=== PATIENT | male | born 1950 | race Caucasian/White ===

== ENCOUNTER → 2020-11-19 | Outpatient (CLI) | payer MEDICARE, OTHER | LOC: LABNPT 06:34 | PROVIDERS: ATTEND Internal Medicine | DX: J06.9 Acute upper respiratory infection, unspecified (principal); Z20.822 Contact with and (suspected) exposure to COVID-19 | CPT/HCPCS: 87635 ==

== ENCOUNTER → 2021-02-25 | Outpatient (CLI) | payer MEDICARE, OTHER | LOC: CARD 10:53 | PROVIDERS: ATTEND Internal Medicine Cardiovascular Disease | DX: I11.9 Hypertensive heart disease without heart failure (principal) | CPT/HCPCS: 93306 ==

== ENCOUNTER → 2021-04-20 | Outpatient (CLI) | payer MEDICARE, OTHER ==
[~2021-04-20] VITALS: Ht 180 cm; Wt 131.0 kg
[~2021-04-20] MED LIST: CATHETER FLUSH 10 ML SYR IV PRN
[2021-04-20 09:18] VITALS: BP 144/94
--- NOTE | 2021-04-20 12:47 | Cardiology Stress Test Report ---
Stress Test Report Date of Procedure/Referring: Date of Procedure: Apr 20, 2021 PCP Paulo Wagner MD Admitting Physician Isma Sullivan MD Indications: HTN Baseline Heart Rate: 72 Baseline Blood Pressure: Blood Pressure Systolic: 144 Blood Pressure Diastolic: 94 Vital Signs Date Time Temp Pulse Resp B/P (MAP) Pulse Ox O2 Delivery O2 Flow Rate FiO2 04/20/21 09:18 72 144/94 (111) Baseline Vital Signs Vital Signs Date Time Temp Pulse Resp B/P (MAP) Pulse Ox O2 Delivery O2 Flow Rate FiO2 04/20/21 09:18 72 144/94 (111) Baseline EKG: Baseline EKG: NSR Summary: After explaining the procedure and details to the patient, he signed the consent and was brought to the stress nuclear laboratory. Patient exercised on standard Shemar protocol, EKG, heart rate and blood pressure were monitored continuously, resting and stress doses of radio tracer were injected, imaging was acquired and reviewed in the short axis, horizontal long axis and vertical long axis views Patient was able to exercise for a total of 4 minutes on Shemar protocol, METs 5.8 Maximum heart rate 734 Maximum blood pressure 206/91 Stress EKG, Minimal nondiagnostic changes Recovery EKG, Return to baseline TID: 1.01 SSS: 7 SDS: 5 EF: 51 Conclusion: 1. Fair exercise tolerance for a total of 4 minutes on standard Shemar protocol, 5.8 METS achieving 89% of maximal expected heart rate 2. Severe hypertensive response to exercise with peak blood pressure 206/91 return to baseline during recovery 3. Nondiagnostic EKG changes with exercise return to baseline during recovery 4. Decreased uptake involving the mid to apical anterior wall and true apex with mild reversibility 5. Normal left ventricular size with hypokinesia at the apex, ejection fraction 51% PAULO WAGNER MD Apr 20, 2021 12:47
== END ==
LOC: CARD 07:45
PROVIDERS: ATTEND Internal Medicine Cardiovascular Disease
DX: I10 Essential (primary) hypertension (principal)
CPT/HCPCS: 78452; 93017; A9502

== ENCOUNTER 2021-05-04 09:00 | Day surgery (SDC) | payer MEDICARE, OTHER ==
[2021-05-04] VITALS (9 sets, daily range): BP systolic 96–142; BP diastolic 69–91
[~2021-05-04] VITALS: Ht 180.3 cm; Wt 134.7 kg
[2021-05-04 07:31] LABS: HEMATOCRIT 44 % (40-54); HEMOGLOBIN 15.2 g/dL (13.3-17.7); MEAN CORPUSCULAR HEMOGLOBIN 33 pg (25-34); MEAN CORPUSCULAR HGB CONC 34 g/dL (32-36); MEAN CORPUSCULAR VOLUME 95 fL (80-99); PLATELET COUNT 194 10^3/uL (130-400); WHITE BLOOD COUNT 5.8 10^3/uL (4.3-11.0)
[2021-05-04 07:37] LABS: CLARITY,URINE CLEAR; COLOR,URINE YELLOW; GLUCOSE, URINE (UA) NEGATIVE (NEGATIVE); KETONES,URINE NEGATIVE (NEGATIVE); LEUKOCYTE ESTERASE ,URINE NEGATIVE (NEGATIVE); NITRITE,URINE NEGATIVE (NEGATIVE); PROTEIN,URINE TRACE (NEGATIVE)
[2021-05-04 07:44] LABS: INR 0.9 (0.8-1.4); PROTHROMBIN TIME PATIENT 12.5 SEC (12.2-14.7)
[2021-05-04 07:44] LABS: BACTERIA,URINE NEGATIVE /HPF; BILIRUBIN,URINE NEGATIVE (NEGATIVE)
[2021-05-04 07:54] LABS: ALBUMIN 4.2 GM/DL (3.2-4.5); BILIRUBIN,TOTAL 0.9 MG/DL (0.1-1.0); CALCIUM 9.4 MG/DL (8.5-10.1); CREATININE SERUM 0.95 MG/DL (0.60-1.30); POTASSIUM 4.2 MMOL/L (3.6-5.0); TOTAL PROTEIN 7.3 GM/DL (6.4-8.2)
--- NOTE | 2021-05-04 08:06 | Diagnostic Imaging Report ---
INDICATION: Abnormal stress test. No previous for comparison. FINDINGS: Heart is not enlarged. The lungs are relatively well-aerated. There is slight interstitial prominence especially in the right lung. The pulmonary vasculature does not appears particularly increased. No pleural effusion. IMPRESSION: Portable chest showing mild interstitial prominence in right lung. No other abnormal findings are seen. This could represent some pulmonary edema or inflammatory change. Dictated by: Dictated on workstation # [id number]
--- NOTE | 2021-05-04 08:06 | Conscious Sedation/ASA ---
Conscious Sedation Pre-Proced Time 08:06 ASA Score 3 For ASA 3 and 4: Consider anesthesia and medical clearance. Also, for patients with a history of failed moderate sedation consider anesthesia. Airway Lungs Heart ASA score ASA 1: a normal healthy patient ASA 2: a patient with a mild systemic disease (mid diabetes, controlled hypertension, obesity x ASA 3: a patient with a severe systemic disease that limits activity (angina, COPD, prior Myocardial infarction) ASA 4: a patient with an incapacitating disease that is a constant threat to life (CHF, renal failure) ASA 5: a moribund patient not expected to survive 24 hrs. (ruptured aneurysm) ASA 6: a declared brain- patient whose organs are being harvested. For emergent operations, add the letter E after the classification Mallampati Classification Grade 3 Sedation Plan Analgesia, Amnesia, Plan communicated to team members, Discussed options with patient/fam, Discussed risks with patient/fam The patient is an appropriate candidate to undergo the planned procedure, sedation, and anesthesia. The patient immediately re-assessed prior to indication. PAULO LEON MD May 04, 2021 08:06
--- NOTE | 2021-05-04 08:47 | Discharge Inst-Post CATH ---
Discharge Inst-CATH/EP Problems Reviewed?: Yes Post Cardiac Cath/EP D/C Inst Follow Up/Plan Appointment with Dr. Wagner's office in 2 to 4 weeks <b>CARDIAC CATH/EP PROCEDURE DISCHARGE INSTRUCTIONS</b> ACTIVITY * Go Home directly and rest. * Limit activity of the leg (or wrist if it was used) for 7 days including aer obics, swimming, jogging, bicycling, etc. * Restrict stair-climbing for 7 days if possible, if not, climb up with your non-cath leg, then bring together on the same step. * Avoid lifting, pushing, pulling or excessive movement of the affected extremi ty for 7 days. * Customary sexual activity may be resumed after 2 days-use caution not to use a position that strains or causes pain to the affected extremity. * No driving for 24 hours. * NO SMOKING. * Avoid straining for bowel movements for 7 days. * Gentle walking on level ground is allowed. * Returning to work will depend on the type of procedure and the results. Your doctor will discuss this with you. CALL YOUR DOCTOR FOR ANY OF THE FOLLOWING: *If bleeding from the puncture site occurs- Apply gentle pressure to site with clean cloth and call your doctor or EMS. * If a knot or lump forms under the skin, increases in size, or causes pain. * If bruising appears to be worsening or moving further down your leg instead of disappearing. * Temperature above 101 F. CARE OF YOUR GROIN INCISION; * Bruising or purple discoloration of the skin near the puncture site is common. * You may shower only, no bathtub bathing for 5 days. Be careful to avoid slipping as your leg may feel stiff. * If a closure device was used on your femoral artery, please see the attached guide regarding care of the device and your leg. * Leave dressing on FOR 24 hours. CARE OF YOUR WRIST INCISION; * Bruising or purple discoloration of the skin near the puncture site is common. * You may shower. * DO NOT submerge wrist. * Leave dressing on FOR 24 hours. PAULO WAGNER MD May 04, 2021 08:47
--- NOTE | 2021-05-04 08:56 | Cardiac Cath Report ---
Cardiac Cath Report Physician (s)/Pet Technologist (s) Physician PAULO LEON MD Pre-Procedure Diagnosis Pre-Procedure Diagnosis: Coronary artery disease Post-Procedure Note Procedure Start Date: May 04, 2021 Name of Procedure: Left heart catheterization Aortic arch angiogram Findings/Procedure Note PROCEDURE NOTE: 70 years old gentleman with extensive history of coronary artery disease multiple interventions in the past, had an abnormal stress test, scheduled for cardiac catheterization possible PTCA. After explaining the procedure to the patient, all pros and cons were explained, all questions were answered. The patient signed the consent and then he was placed on the cardiac catheterization laboratory. Groin was prepped SL fashion local anesthesia was used. Sheath placed in the right radial artery, Rugby catheter was used, I had difficulty moving the catheter across the aortic arch due to the anatomy. Prolapsed to the left ventricular cavity, pressure was measured, pullback LV to aorta was done. Engaged the right and left coronary system, angiogram was done then I proceeded with pulling back the catheter to the aortic arch and I evaluated the aortic arch with angiogram. At the end of the procedure the sheath was removed. Vascular band was used FINDINGS: Hemodynamics LV 103/19, end-diastolic pressure of 19 Aorta 107/75 mean of 67 ANATOMY: Left Main is free of obstructive disease Left Anterior Descending has multiple patent stents, slow flow due to small vessel disease distally nonobstructive disease Left Circumflex is moderate in size with mild to moderate disease. Ramus intermedius has moderate ostial stenosis, there is a small branch of the ramus intermedius that has severe stenosis, very small artery, not amendable to intervention Right Coronary Artery is dominant artery moderate in size with 50% stenosis at the midportion otherwise mild disease nonobstructive disease LV Gram was not done, pressure was measured Aorta evaluation done with aortic arch angiogram showing calcification in the aortic arch with hypertensive changes, no dissection or aneurysm, tortuous brachiocephalic origin with mild disease, mild disease in the left carotid and left subclavian arteries. CONCLUSION: 1. Patent stents in the proximal and mid LAD with slow flow in the LAD due to small vessel disease distally 2. Moderate stenosis at the ostial ramus intermedius branch, severe stenosis at the ostial branch of the ramus intermedius very small artery not amendable to intervention 3. 50% stenosis in the mid right coronary artery with mild to moderate disease distally 4. Mildly elevated left ventricular end-diastolic pressure 5. Hypertensive changes in the aortic arch with no dissection or aneurysm, tortuous origin of the brachiocephalic artery. DISCUSSION AND RECOMMENDATION: Maximizing medical therapy, no intervention is warranted Anesthesia Type: Conscious Sedation Estimated blood loss (mL): 10 ml Contrast Amount: 59 ml Total Radiation Dose: 737 mGy Post-Procedure Diagnosis Post-operative diagnosis: Coronary artery disease Hypertension Hyperlipidemia Chest pain PAULO LEON MD May 04, 2021 08:56
[~2021-05-04 09:00] MED LIST changes: +ASPI-1238 PO; +ATOR40TA70 PO; -CATHETER FLUSH 10 ML SYR IV PRN; +CLOP75TA69 PO; +CYCL10TA25 PO; +HEParin (CATH LAB) 2,000 ML IV ONE; +HEParin 1000 UNIT/ML (10ML VIAL) FOR BOLUS ONE; +ISOS60TA63 PO; +LIDOCAINE 1% INJ 20 ML VIAL ONE; +LISI5TAB20 PO; +METO-352 PO; +MIDAZOLAM 5 MG/5 ML (VERSED) VIAL ONE; +NITRO DRIP 25000 MCG/D5W 250 ML IV ONE; +NS IV 1000 ML 1,000 ML IV SCH; +NS IV 1000 ML 1,000 ML ONE; +PANT40TA2 PO; +SERT-414 PO; +SPIR25TA PO; +TRAZ-227 PO; +VERAPAMIL 5 MG/2 ML (CALAN) VIAL IV ONE; +fentaNYL INJ 100 MCG/2 ML AMP ONE
== END 2021-05-04 11:05 | disposition home or self-care (01) ==
LOC: CATH 09:00
PROVIDERS: ATTEND Internal Medicine Cardiovascular Disease
DX: I25.118 Atherosclerotic heart disease of native coronary artery with other forms of angina pectoris (principal); I10 Essential (primary) hypertension; E78.2 Mixed hyperlipidemia; I65.23 Occlusion and stenosis of bilateral carotid arteries; R09.89 Other specified symptoms and signs involving the circulatory and respiratory systems; I25.2 Old myocardial infarction; Z79.82 Long term (current) use of aspirin; Z79.899 Other long term (current) drug therapy; Z87.891 Personal history of nicotine dependence; Z95.5 Presence of coronary angioplasty implant and graft
CPT/HCPCS: 36221; 71045; 80053; 80061; 81000; 85027; 85610; 85730; 87081; 93458; C1894; 36415; 36430

== ENCOUNTER → 2021-09-27 | Outpatient (CLI) | payer MEDICARE, OTHER ==
[~2021-09-27] MED LIST changes: -HEParin (CATH LAB) 2,000 ML IV ONE; -HEParin 1000 UNIT/ML (10ML VIAL) FOR BOLUS ONE; -LIDOCAINE 1% INJ 20 ML VIAL ONE; -MIDAZOLAM 5 MG/5 ML (VERSED) VIAL ONE; -NITRO DRIP 25000 MCG/D5W 250 ML IV ONE; -NS IV 1000 ML 1,000 ML IV SCH; -NS IV 1000 ML 1,000 ML ONE; +RT-ALBUTEROL SULF 2.5 MG/3 ML PRE-MIX VIAL INH ONE; -VERAPAMIL 5 MG/2 ML (CALAN) VIAL IV ONE; -fentaNYL INJ 100 MCG/2 ML AMP ONE
== END ==
LOC: RT 10:45
PROVIDERS: ATTEND Physician Assistant
DX: R05.3 Chronic cough (principal); R06.02 Shortness of breath; Z87.891 Personal history of nicotine dependence
CPT/HCPCS: 94060; 94726; 94729

== ENCOUNTER → 2021-10-26 | Outpatient (CLI) | payer MEDICARE, OTHER ==
[~2021-10-26] MED LIST changes: -RT-ALBUTEROL SULF 2.5 MG/3 ML PRE-MIX VIAL INH ONE
--- NOTE | 2021-10-26 12:00 | Diagnostic Imaging Report ---
EXAMINATION: Chest 2 view HISTORY: RESPIRATORY FAILURE COMPARISON: 05/04/2021 FINDINGS: Heart size and pulmonary vasculature are normal. There are patchy interstitial and airspace opacities seen throughout both lungs. Likely background chronic lung disease present. No pleural effusion or pneumothorax. Degenerative changes of the thoracic spine. Osseous structures are otherwise intact. IMPRESSION: 1. Patchy interstitial airspace opacities throughout both lungs. Findings can be seen with pneumonia or pulmonary edema. Likely some degree of background chronic lung disease. Dictated by: Dictated on workstation # [id number]
== END ==
LOC: RAD 11:11
PROVIDERS: ATTEND Physician Assistant
DX: J44.9 Chronic obstructive pulmonary disease, unspecified (principal)
CPT/HCPCS: 71046

== ENCOUNTER → 2021-12-14 | Outpatient (CLI) | payer MEDICARE, OTHER | LOC: CARD 14:25 | PROVIDERS: ATTEND Internal Medicine Cardiovascular Disease | DX: I11.9 Hypertensive heart disease without heart failure (principal) | CPT/HCPCS: 93306 ==

== ENCOUNTER → 2021-12-20 | Outpatient (CLI) | payer MEDICARE, OTHER ==
[~2021-12-20] MED LIST changes: +RT-ALBUTEROL SULF 2.5 MG/3 ML PRE-MIX VIAL INH ONE
== END ==
LOC: RT 15:05
PROVIDERS: ATTEND Internal Medicine Critical Care Medicine
DX: J84.114 Acute interstitial pneumonitis (principal); J96.11 Chronic respiratory failure with hypoxia; J84.10 Pulmonary fibrosis, unspecified; K21.9 Gastro-esophageal reflux disease without esophagitis
CPT/HCPCS: 94060; 94621; 94726; 94729

== ENCOUNTER → 2021-12-23 | Outpatient (CLI) | payer MEDICARE, OTHER ==
[~2021-12-23] MED LIST changes: -RT-ALBUTEROL SULF 2.5 MG/3 ML PRE-MIX VIAL INH ONE
[2021-12-23 08:44] LABS: ABSOLUTE RETIC # 194 10e9/uL (24-90); BASOPHILS % (AUTO) 0 % (0-10); EOSINOPHILS % (AUTO) 0 % (0-10); HEMATOCRIT 44 % (40-54); HEMOGLOBIN 15.4 g/dL (13.3-17.7); LYMPHOCYTES # (AUTO) 1.8 10^3/uL (1.0-4.0); LYMPHOCYTES % (AUTO) 17 % (12-44); MEAN CORPUSCULAR HEMOGLOBIN 33 pg (25-34); MEAN CORPUSCULAR HGB CONC 35 g/dL (32-36); MEAN CORPUSCULAR VOLUME 95 fL (80-99); MEAN PLATELET VOLUME 9.7 fL (9.0-12.2); MONOCYTES # (AUTO) 0.7 10^3/uL (0.0-1.0); MONOCYTES % (AUTO) 6 % (0-12); NEUTROPHILS % (AUTO) 73 % (42-75); PLATELET COUNT 153 10^3/uL (130-400); WHITE BLOOD COUNT 10.9 10^3/uL (4.3-11.0)
[2021-12-23 09:30] LABS: ANISOCYTOSIS SLIGHT; BAND NEUTROPHILS 3 %; BASOPHILS % (MANUAL) 0 %; EOSINOPHILS % (MANUAL) 0 %; LYMPHOCYTES % (MANUAL) 20 %; MONOCYTES % (MANUAL) 2 %; MYELOCYTES % 2 %; NEUTROPHILS % (MANUAL) 73 %
--- NOTE | 2021-12-23 10:14 | Diagnostic Imaging Report ---
PROCEDURE: US Hepatic (Liver). INDICATION: Elevated liver enzymes TECHNIQUE: Multiple grayscale sonographic images were obtained of the right upper quadrant of the abdomen. CORRELATION STUDY: None FINDINGS: LIVER: Enlarged at nearly 20 cm. Suggested increased echotexture. No definitive focal lesion . GALLBLADDER: The gallbladder demonstrates no definitive shadowing gallstones, abnormal gallbladder wall thickening or pericholecystic fluid. COMMON BILE DUCT: Obscured and not well visualized. No overt bile duct dilatation. AORTA/IVC: Largely obscured and not well visualized. PANCREAS: Visualized portions appearing unremarkable. RIGHT KIDNEY: 11.6 x 5.1 x 5.1 cm. No hydronephrosis. OTHER: None. IMPRESSION: 1. Hepatomegaly with likely hepatic steatosis. Dictated by: Dictated on workstation # [id number]
== END ==
LOC: RAD 08:21
PROVIDERS: ATTEND Internal Medicine
DX: D72.829 Elevated white blood cell count, unspecified (principal); R94.5 Abnormal results of liver function studies
CPT/HCPCS: 36415; 76705; 85007; 85027; 85045; 85055